=== PATIENT | female | born 1990 | race African-American/Black ===

== ENCOUNTER 2016-10-27 11:20 | Observation (INO) | payer MEDICAID ==
[~2016-10-27 11:20] MED LIST: FERR325T50 PO; PREN-96 PO
== END 2016-10-27 12:45 | disposition home or self-care (01) | DRG 566 ==
LOC: LDRP 11:20 → INTOOBSV 11:20
PROVIDERS: ADMIT Specialist; ATTEND Specialist
DX: O46.93 Antepartum hemorrhage, unspecified, third trimester (principal); Z3A.33 33 weeks gestation of pregnancy
CPT/HCPCS: 59025; 81002; G0378

== ENCOUNTER 2016-12-04 10:15 | Observation (INO) | payer MEDICAID ==
[2016-12-04 11:05] LABS: Urine RBC None Seen /hpf (0 - 4)
[2016-12-04 11:13] LABS: Urine Bilirubin Negative (Negative); Urine Blood Negative /uL (Negative); Urine Color Yellow (Yellow); Urine Glucose Normal (Normal); Urine Ketone Negative (Negative); Urine Nitrite Negative (Negative); Urine Squamous Epithelial Cell FEW /hpf (<5); Urine Urobilinogen Normal (Negative); Urine pH 7.5 (5.0-8.0)
[2016-12-04 11:20] LABS: Basophils # (auto) 0 uL; Basophils % (auto) 0.4 % (0.0-2.0); CONDITION Y; Eosinophils # (auto) 0.1 uL; Eosinophils % (auto) 1.2 % (0.0-7.0); Hematocrit 33.5 % (36.0-46.0); Hemoglobin 11.1 g/dL (12.2-16.2); Lymphocytes % (auto) 29.9 % (10.0-50.0); Mean Corpuscular Hemoglobin 29.8 pg (28.0-32.0); Mean Corpuscular Hgb Conc. 33.2 g/dL (32.0-36.0); Mean Corpuscular Volume 89.8 fL (80.0-100.0); Mean Platelet Volume 7.8 fL (7.4-10.4); Monocytes # (auto) 0.4 uL; Monocytes % (auto) 6.7 % (0.0-12.0); Neutrophils # (auto) 4.1 uL; Neutrophils % (auto) 61.8 % (37.0-80.0); Platelet Count (auto) 328 10^3/uL (140-450); White Blood Cell 6.6 10^3/uL (4.4-10.8)
== END 2016-12-04 12:10 | disposition home or self-care (01) | DRG 566 ==
LOC: LDRP 10:15
PROVIDERS: ADMIT Specialist; ATTEND Specialist
DX: O26.893 Other specified pregnancy related conditions, third trimester (principal); R10.9 Unspecified abdominal pain; Z3A.38 38 weeks gestation of pregnancy
CPT/HCPCS: 36415; 59025; 76818; 80307; 81001; 81002; 85025; 86592; G0378

== ENCOUNTER 2016-12-05 07:00 | Inpatient (IN) | payer MEDICAID ==
[~2016-12-05] VITALS: Ht 172.7 cm; Wt 80.3 kg
[2016-12-05] MEDS ORDERED: LACT. RINGERS/OXYTOCIN 20UNITS 1,000 ML IV SCH (07:52)
[2016-12-05] MEDS ORDERED: LACTATED RINGER'S 1,000 ML IV SCH (07:52)
[2016-12-05] MEDS ORDERED: LIDOCAINE 2%HCL (LOCAL ANESTH.) INJ 20ML MDV IJ ONE ×2 (08:00→11:00)
[2016-12-05] MEDS ORDERED: PENICILLIN G POT 5MIL/D5 50ML 50 ML IV ONE (08:00)
[2016-12-05] MEDS ORDERED: WITCH HAZEL-GLYCERIN PAD TOP PRN (08:00)
[2016-12-05] MEDS ORDERED: DERMOPLAST 60ML BOTTLE TOP PRN (08:00)
[2016-12-05] MEDS ORDERED: METHYLERGONOVINE MALEATE 0.2 MG/ML AMP IM PRN (08:00)
[2016-12-05] MEDS ORDERED: CARBOPROST TROMETHAMINE 250 MCG/1ML VIAL IM PRN (08:00)
[2016-12-05] MEDS ORDERED: PHISODERM TOP SOLN 240ML BTL TOP PRN (08:00)
[2016-12-05] MEDS ORDERED: LIDOCAINE 1% HCL (LOCAL ANESTH.) INJ 20ML MDV IJ ONE (08:00)
[2016-12-05] MEDS ORDERED: NALBUPHINE HCL 10 MG/1ml INJECTION IV PRN (08:00)
[2016-12-05] MEDS ORDERED: PROMETHAZINE HCL 25 MG/ML 1ML IV PRN (08:30)
[2016-12-05 09:16] LABS: Basophils # (auto) 0 uL; Basophils % (auto) 0.6 % (0.0-2.0); CONDITION Y; Eosinophils # (auto) 0.2 uL; Eosinophils % (auto) 2.5 % (0.0-7.0); Hematocrit 31.6 % (36.0-46.0); Hemoglobin 10.5 g/dL (12.2-16.2); Lymphocytes # (auto) 2.3 uL; Lymphocytes % (auto) 33.3 % (10.0-50.0); Mean Corpuscular Hemoglobin 29.6 pg (28.0-32.0); Mean Corpuscular Hgb Conc. 33.2 g/dL (32.0-36.0); Mean Corpuscular Volume 89.2 fL (80.0-100.0); Mean Platelet Volume 7.7 fL (7.4-10.4); Monocytes # (auto) 0.8 uL; Neutrophils # (auto) 3.7 uL; Neutrophils % (auto) 52.6 % (37.0-80.0); Platelet Count (auto) 311 10^3/uL (140-450)
[2016-12-05 09:23] LABS: INR 0.86 (0.9-1.15); Partial Thromboplastin Time 29.2 sec (22.64-33.71); Prothrombin Time 9.4 sec (9.37-12.3)
[2016-12-05 09:26] LABS: Urine Bilirubin Negative (Negative); Urine Color Yellow (Yellow); Urine Glucose Normal (Normal); Urine Ketone Negative (Negative); Urine Nitrite Negative (Negative); Urine RBC <1 /hpf (0 - 4); Urine Squamous Epithelial Cell FEW /hpf (<5); Urine Urobilinogen Normal (Negative); Urine pH 6.5 (5.0-8.0)
[2016-12-05 09:28] LABS: Urine Blood 2+ /uL (Negative)
[2016-12-05 09:34] LABS: Albumin 2.9 g/dL (3.4-5.0); BUN/Creatinine Ratio 13.1; Bilirubin, Total 0.3 mg/dL (0.2-1.0); Calcium 8.7 mg/dL (8.5-10.1); Total Protein 6.6 g/dL (6.4-8.2)
[2016-12-05] MEDS ORDERED: fentaNYL W ROPIVACAINE 150 ML EPI SCH (11:00)
[2016-12-05] MEDS ORDERED: NALOXONE HCL 0.4 MG/ML VIAL IV ONE (11:00)
[2016-12-05] MEDS ORDERED: ePHEDrine SULFATE 50 MG/ML AMP IV ONE (11:00)
[2016-12-05] MEDS ORDERED: LIDOCAINE HCL 2 %PF INJ 10ML AMP IJ ONE (11:00)
[2016-12-05] MEDS ORDERED: fentaNYL CITRATE 100 MCG/2 ML VL IV ONE (11:00)
[2016-12-05] MEDS ORDERED: OXYTOCIN 10UNIT/ML 1ML VIAL ONE (11:43)
[2016-12-05] MEDS ORDERED: LIDOCAINE 2%HCL (LOCAL ANESTH.) INJ 20ML MDV ONE (11:53)
[2016-12-05] MEDS ORDERED: PENICILLIN G POTASSIUM 2,500,000 UNITS in D5W 5% 50 ML IV SCH (12:00)
[2016-12-05] MEDS ORDERED: IBUPROFEN 600 MG TAB PO ONE (12:26)
[2016-12-05] MEDS ORDERED: ACETAMINOPHEN 325 MG TAB PO PRN (12:30)
[2016-12-05] MEDS ORDERED: IBUPROFEN 600 MG TAB PO PRN (12:30)
[2016-12-05 16:30] VITALS: BP 111/61
[2016-12-05] MEDS: IBUPROFEN 600 MG TAB PO PRN ×2 (17:22→21:11)
[2016-12-05 20:25] VITALS: BP 111/59
[2016-12-06] VITALS: BP 106/73
[2016-12-06 03:30] VITALS: BP 125/89
[2016-12-06] MEDS: IBUPROFEN 600 MG TAB PO PRN (05:45)
[2016-12-06 08:00] VITALS: BP 111/59
[2016-12-06] MEDS ORDERED: DOCUSATE CALCIUM 240 MG CAP PO SCH (10:00)
[2016-12-06] MEDS ORDERED: TETANUS-DIPTH-ACEL PERTUSSIS 0.5ML SYRG IM ONE (10:15)
== END 2016-12-06 10:35 | disposition home or self-care (01) | DRG 560 ==
LOC: OBSVTOIN 07:00 → LDRP 07:00
PROVIDERS: ADMIT Specialist; ATTEND Specialist
PROC: 10E0XZZ Delivery of Products of Conception, External Approach (ICD-10-PCS; principal; 2016-12-05)
PROC: 10907ZC Drainage of Amniotic Fluid, Therapeutic from Products of Conception, Via Natural or Artificial Opening (ICD-10-PCS; 2016-12-05)
DX: O99.824 Streptococcus B carrier state complicating childbirth (principal); F12.90 Cannabis use, unspecified, uncomplicated; O99.324 Drug use complicating childbirth; F14.90 Cocaine use, unspecified, uncomplicated; Z37.0 Single live birth; Z3A.38 38 weeks gestation of pregnancy; Z23 Encounter for immunization
CPT/HCPCS: 36415; 59025; 59409; 80053; 80307; 81001; 81002; 85025; 85610; 85730; 86592; 86850; 86900; 86901; 90715; 96361; 96366; 96372; 96374; 96375; J2540; J2590; J7060